=== PATIENT | female | born 1985 | race Caucasian/White ===

== ENCOUNTER 2016-12-31 16:11 | Emergency (ER) | payer OTHER ==
[2016-12-31 16:18] VITALS: BP 108/73; PULSE 67; RESP 20; TEMP 98.8; O2SAT 100
--- NOTE | 2016-12-31 16:45 | C.PDOC ---
History Of Present Illness 31 y/o female presents to ED with complaints of itchy rash. Patient states 2 weeks ago she had an area of erythema on her chest and then rash developed throughout body , primarily on the torso area. Patient denies anyone at home having similar symptoms, known allergens, fever, sob or any other complaints at this time. Time Seen by Provider: 12/31/16 16:23 Chief Complaint (Nursing): Abnormal Skin Integrity History Per: Patient History/Exam Limitations: no limitations Onset/Duration Of Symptoms: Days Current Symptoms Are (Timing): Still Present Quality Of Symptoms: Itching Past Medical History Reviewed: Historical Data, Nursing Documentation, Vital Signs Vital Signs: Last Vital Signs Temp 98.8 F 12/31/16 16:15 Pulse 67 12/31/16 16:15 Resp 20 12/31/16 16:15 BP 108/73 12/31/16 16:15 Pulse Ox 100 12/31/16 17:20 Family History: States: Unknown Family Hx - Social History Hx Alcohol Use: No Hx Substance Use: No Review Of Systems Except As Marked, All Systems Reviewed And Found Negative. Constitutional: Negative for: Fever, Chills Respiratory: Negative for: Cough, Shortness of Breath Skin: Positive for: Rash Physical Exam - Physical Exam Appears: Non-toxic, No Acute Distress Skin: Warm, Rash (Diffuse maculopapular rash most contcentrated on torso- mitzy tree pattern) Head: Atraumatic, Normacephalic Eye(s): bilateral: Normal Inspection, EOMI Nose: Normal Oral Mucosa: Moist Throat: Normal, No Erythema, No Exudate Neck: Normal ROM, Supple Chest: Symmetrical Cardiovascular: Rhythm Regular Respiratory: Normal Breath Sounds, No Accessory Muscle Use Gastrointestinal/Abdominal: Soft, No Tenderness Back: No CVA Tenderness, No Vertebral Tenderness Neurological/Psych: Oriented x3, Normal Speech ED Course And Treatment O2 Sat by Pulse Oximetry: 100 (RA) Pulse Ox Interpretation: Normal Progress Note: Discussed signs and symptoms of concern for rash and instructed to follow up with dermatology in 1-2 days. Reevaluation Time: 16:30 Reassessment Condition: Improved Disposition - Disposition Referrals: [facility] [Outside] Disposition: HOME/ ROUTINE Disposition Time: 16:42 Condition: STABLE Additional Instructions: Raciel anaya o la clnica en 1-3 stein sin falta, para mas evaluacin. [place] myla medicamentos frances indicado. Volver a la evelyn de emergencia en cualquier momento si los sntomas persisten o empeoran. Prescriptions: DiphenhydrAMINE [Benadryl] 25 mg PO Q6 #20 cap Hydrocortisone 1% Cream [Cortizone 1% Cream] 1 appl TP TID #1 tube Instructions: Pityriasis rosea (ED) Print Language: ICELANDIC - Clinical Impression Clinical Impression: Pityriasis rosea - Scribe Statement The provider has reviewed the documentation as recorded by the Scribraffy Oleary All medical record entries made by the Scribe were at my direction and personally dictated by me. I have reviewed the chart and agree that the record accurately reflects my personal performance of the history, physical exam, medical decision making, and the department course for this patient. I have also personally directed, reviewed, and agree with the discharge instructions and disposition.
== END 2016-12-31 17:04 | disposition home or self-care (01) ==
LOC: C.ER 16:11
DX: L42 Pityriasis rosea (principal)

== ENCOUNTER 2018-02-13 18:13 | Emergency (ER) | payer SELFPAY ==
[2018-02-13 18:41] VITALS: RESP 18
--- NOTE | 2018-02-13 19:34 | C.PDOC ---
History Of Present Illness 32 y/o female presents to the ER complaining of suprapubic abdominal pain which has been present for the past 2 weeks. Patient states that she did not take any medications for the pain. Patient reports that her LMP was on 11/25/17. Denies having fever, chills, nausea, vomiting, diarrhea, dysuria, and hematuria. No vaginal d/c, pain w/ sex or any rashes. NO hx of STDS. Time Seen by Provider: 02/13/18 19:34 Chief Complaint (Nursing): Abdominal Pain History Per: Patient History/Exam Limitations: no limitations Onset/Duration Of Symptoms: Days Current Symptoms Are (Timing): Still Present Severity: Moderate Past Medical History Reviewed: Historical Data, Nursing Documentation, Vital Signs Vital Signs: Last Vital Signs Temp 99.2 F 02/14/18 00:02 Pulse 68 02/14/18 00:02 Resp 18 02/14/18 00:02 BP 117/71 02/14/18 00:02 Pulse Ox 99 02/14/18 00:02 - Medical History PMH: No Chronic Diseases Other Surgeries: Hx of surgeries Family History: States: No Known Family Hx - Social History Hx Alcohol Use: No Hx Substance Use: No - Immunization History Hx Tetanus Toxoid Vaccination: No Hx Influenza Vaccination: No Hx Pneumococcal Vaccination: No Review Of Systems Except As Marked, All Systems Reviewed And Found Negative. Constitutional: Negative for: Fever, Chills Gastrointestinal: Positive for: Abdominal Pain. Negative for: Nausea, Vomiting , Diarrhea Genitourinary: Negative for: Dysuria, Hematuria Physical Exam - Physical Exam Appears: Non-toxic, No Acute Distress Skin: Normal Color, Warm, Dry Head: Atraumatic, Normacephalic Eye(s): bilateral: Normal Inspection Nose: Normal Oral Mucosa: Moist Neck: Supple Chest: Symmetrical Cardiovascular: Rhythm Regular Respiratory: Normal Breath Sounds, No Rales, No Rhonchi, No Wheezing Gastrointestinal/Abdominal: Soft, Tenderness (suprapubic and RLQ tenderness), No Guarding, No Rebound Neurological/Psych: Oriented x3, Normal Speech ED Course And Treatment - Laboratory Results Result Diagrams: 02/13/18 20:35 02/13/18 20:35 O2 Sat by Pulse Oximetry: 98 (RA) Pulse Ox Interpretation: Normal Medical Decision Making Medical Decision Making: Well appearing 32 yr old female p/w abdominal pain, suprapubic. ddx includes cyst vs uti. Plan: --Labs --UA --CT- Abd & Pelv. --US- Pelvis --Tylenol PO Ovarian lesion finding on CT- informed pt. Otherwise labs, imaging unremarkable. Pain improved, clear for d/c home with OBGYN, Informed pt regard ovarian lesion finding- she understands and will f/u Disposition - Disposition Referrals: [facility] [Outside] Daniela Haas MD [Staff Provider] - Disposition: HOME/ ROUTINE Disposition Time: 23:18 Condition: GOOD Additional Instructions: Follow up with your OBGYN or The one reccomended- for the increased increased echogenicity within the right ovary DIOR ALMONTE, thank you for letting us take care of you today. Your provider was Rj Florez and you were treated for VAGINAL PAIN. The emergency medical care you received today was directed at your acute symptoms. If you were prescribed any medication, please fill it and take as directed. It may take several days for your symptoms to resolve. Return to the Emergency Department if your symptoms worsen, do not improve, or if you have any other problems. Please contact your doctor or call one of the physicians/clinics you have been referred to that are listed on the Patient Visit Information form that is included in your discharge packet. Bring any paperwork you were given at discharge with you along with any medications you are taking to your follow up visit. Our treatment cannot replace ongoing medical care by a primary care provider outside of the emergency department. Thank you for allowing the [facility] team to be part of your care today. If you had an X-Ray or CT scan: A Radiologist will review the ED reading if any change in treatment is needed we will contact you. If you had a blood, urine, or wound culture: It will take several days for the results, if any change in treatment is needed we will contact you. If you had an STI test: It will take 48 hours for the results. Please call after 1 week if you have not heard back. Instructions: Acute Abdomen (Belly Pain) Forms: [employer] (Mongolian) - Clinical Impression Clinical Impression: Abdominal pain, Abdominal pain - Scribe Statement The provider has reviewed the documentation as recorded by the Titi Gipson Provider Attestation: All medical record entries made by the Scribe were at my direction and personally dictated by me. I have reviewed the chart and agree that the record accurately reflects my personal performance of the history, physical exam, medical decision making, and the department course for this patient. I have also personally directed, reviewed, and agree with the discharge instructions and disposition.
[2018-02-13 20:38] LABS: BASO # 0.1 K/uL (0.0-0.2); BASO % 1.2 % (0.0-2.0); EOS # 1.1 K/uL (0.0-0.7); EOS % 10.9 % (0.0-4.0); LYMPH # 4.1 K/uL (1.0-4.3); LYMPH % 39.4 % (20.0-40.0); MEAN CELL VOLUME 81.6 fL (81.0-99.0); MEAN CORPUSCULAR HEMOGLOBIN 26.8 pg (27.0-31.0); MEAN CORPUSCULAR HGB CONC 32.8 g/dL (33.0-37.0); MEAN PLATELET VOLUME 8.6 fL (7.2-11.7); MONO # 0.6 K/uL (0.0-0.8); MONO % 5.3 % (0.0-10.0); NEUT # 4.5 K/uL (1.8-7.0); NEUT % 43.2 % (50.0-75.0); NRBC % 0.1 % (0.0-2.0); RBC 4.47 Mil/uL (3.80-5.20); RED CELL DISTRIBUTION WIDTH 14.7 % (11.5-14.5); WHITE BLOOD COUNT 10.3 K/uL (4.8-10.8)
[2018-02-13 20:44] LABS: SQUAMOUS EPITHIAL 8 /hpf (0-5); URINE BACTERIA OCC (<OCC); URINE BILIRUBIN NEGATIVE (NEGATIVE); URINE CLARITY Clear (Clear); URINE COLOR Yellow (YELLOW); URINE GLUCOSE (UA) NORMAL (Normal); URINE LEUKOCYTE ESTERASE NEG Leu/uL (Negative); URINE PROTEIN NEGATIVE (NEGATIVE); URINE UROBILINOGEN NORMAL mg/dL (0.2-1.0)
[2018-02-13 20:45] LABS: URINE BLOOD TRACE (NEGATIVE)
[2018-02-13 20:58] LABS: ALB/GLOB RATIO 1.6 (1.0-2.1); ALBUMIN 4.3 g/dL (3.5-5.0); ALT/SGPT 30 U/L (9-52); AST/SGOT 20 U/L (14-36); BLOOD UREA NITROGEN 14 mg/dL (7-17); GFR NON-AFRICAN AMERICAN > 60; LIPASE 54 U/L (23-300)
[2018-02-13] MEDS ORDERED: Iodixanol 320 mg/ml 150 ml Bottle IV ONE (21:09)
[2018-02-14 00:04] VITALS: BP 117/71; PULSE 68; TEMP 99.2
[2018-02-14 01:18] VITALS: O2SAT 98
--- NOTE | 2018-02-14 07:52 | CT ---
Date of service: 02/13/2018 PROCEDURE: CT Abdomen and Pelvis without intravenous contrast HISTORY: Abdominal pain COMPARISON: None. TECHNIQUE: Multiple contiguous axial images were performed through the abdomen and pelvis with the use of intravenous contrast. Subsequently, sagittal and coronal reformatted images were obtained. Radiation dose: Total exam DLP = 825 mGy-cm. This CT exam was performed using one or more of the following dose reduction techniques: Automated exposure control, adjustment of the mA and/or kV according to patient size, and/or use of iterative reconstruction technique. FINDINGS: LOWER THORAX: Mild atelectasis at the lung bases. LIVER: Unremarkable. No gross lesion or ductal dilatation. GALLBLADDER AND BILE DUCTS: Unremarkable. PANCREAS: Unremarkable. No gross lesion or ductal dilatation. SPLEEN: Unremarkable. ADRENALS: Unremarkable. No mass. KIDNEYS AND URETERS: Unremarkable. No hydronephrosis. No solid mass. VASCULATURE: Unremarkable. No aortic aneurysm. BOWEL: Colonic diverticulosis. APPENDIX: Unremarkable. Normal appendix. PERITONEUM: Unremarkable. No free fluid. No free air. LYMPH NODES: Unremarkable. No enlarged lymph nodes. BLADDER: Unremarkable. REPRODUCTIVE: Unremarkable. Ovarian follicles. BONES: Degenerative changes in the spine. Sclerosis of the bilateral SI joints. OTHER FINDINGS: None. IMPRESSION: Negative acute. Additional findings as above. These findings were preliminarily reported at 10:21 p.m. on 02/13/[address] Juanita Ramirez from [facility].
--- NOTE | 2018-02-14 08:11 | US ---
Date of service: 02/13/2018 HISTORY: abd pain. LMP 11/25/2017 COMPARISON: CT abdomen pelvis performed same day TECHNIQUE: Grayscale and color Doppler sonographic images were obtained of the pelvis utilizing transabdominal and transvaginal approach. FINDINGS: UTERUS: Anteverted and retroflexed and normal in size measuring 9.6 x 4.2 x 5 cm. ENDOMETRIUM: Normal in caliber endometrial stripe measures 0.6 cm. CERVIX: No definite cervical abnormality identified. RIGHT OVARY: Measures 3.7 x 2.1 x 3.1 cm. Follicles noted. There is an echogenic 0.7 cm focus within the ovary. Normal flow. LEFT OVARY: Measures 3.3 x 1.5 x 3 cm. Follicles noted. Normal flow. FREE FLUID: No significant pelvic free fluid noted. OTHER FINDINGS: None. IMPRESSION: Echogenic 0.7 cm focus within the right ovary. This may represent a dermoid or ovarian parenchyma. However, other etiologies are not excluded. Recommend follow-up pelvic ultrasound in 3 months, or sooner if clinically warranted. Preliminary impression was provided by [facility]. Findings are concordant.
== END 2018-02-14 00:03 | disposition home or self-care (01) ==
LOC: C.ER 18:13
DX: R10.30 Lower abdominal pain, unspecified (principal)
CPT/HCPCS: 74177; 76830; 76856; 80053; 81001; 83690; 85025; 99284; Q9967

== ENCOUNTER 2018-08-28 07:16 | Outpatient (CLI) | payer OTHER | END 2018-08-28 07:17 | disposition home or self-care (01) | LOC: C.LAB 07:16 | DX: Z01.419 Encounter for gynecological examination (general) (routine) without abnormal findings (principal) ==